=== PATIENT | female | born 1990 | race Caucasian/White ===

== ENCOUNTER → 2018-09-22 | Emergency (ER) | payer OTHER ==
[~2018-09-22] VITALS: Ht 160 cm; Wt 106.6 kg
[~2018-09-22] MED LIST: ACET500C5 PO; NITR-58 PO
[2018-09-22 15:13] VITALS: BP 151/99; PULSE 85; RESP 18; Ht 160 cm; Wt 106.6 kg
--- NOTE | 2018-09-22 15:49 | ERD ---
ER Documentation Chief Complaint Chief Complaint left pelvic pain x 4 days, + 4 weeks and 5 days HPI 27-year-old female with no reported past medical history G1, P0 currently 4 weeks 5 days who presents with complaint of pelvic pain. Having left- sided abdominal pelvic pain over the past 4 days. She otherwise denies vaginal bleeding, urinary symptoms such as burning itching or frequency, vaginal discharge, nausea, vomiting, diarrhea, fever, chills or any other concerning symptoms. ROS All systems reviewed and are negative except as per history of present illness. Medications Home Meds Active Scripts Acetaminophen* (Tylophen*) 500 Mg Capsule, 1 CAP PO Q6H PRN for PAIN AND OR ELEVATED TEMP, #20 CAP Prov:ALEJANDRO DELEON PA-C 09/22/18 Allergies Allergies: Coded Allergies: No Known Allergy (Unverified , 09/22/18) PMhx/Soc Medical and Surgical Hx: pt denies Medical Hx, pt denies Surgical Hx Hx Alcohol Use: No Hx Substance Use: No Hx Tobacco Use: No Smoking Status: Never smoker FmHx Family History: No diabetes, No coronary disease, No other Physical Exam Vitals Vital Signs Date Temp Pulse Resp B/P (MAP) Pulse Ox O2 O2 Flow FiO2 Time Delivery Rate 09/22/18 97.6 85 18 151/99 99 15:13 (116) Physical Exam I have reviewed the triage vital signs. Const: Well nourished, well developed, appears stated age Eyes: PERRL, no conjunctival injection HENT: NCAT, Neck supple without meningismus CV: RRR, Warm, well-perfused extremities RESP: CTAB, Unlabored respiratory effort GI: soft, tenderness to deep palpation of left lower quadrant, no rebound or guarding, non-distended, no masses MSK: No gross deformities appreciated Skin: Warm, dry. No rashes Neuro: grossly non focal Psych: Appropriate mood and affect. Result Diagram: 09/22/18 1606 Results 24 hrs Laboratory Tests Test 09/22/18 15:53 09/22/18 16:06 Urine Color STRAW Urine Clarity CLEAR Urine pH 6.0 Urine Specific [place] 1.001 Urine Ketones NEGATIVE mg/dL Urine Nitrite NEGATIVE mg/dL Urine Bilirubin NEGATIVE mg/dL Urine Urobilinogen NEGATIVE mg/dL Urine Leukocyte Esterase NEGATIVE Teresa/ul Urine Microscopic RBC 0 /HPF Urine Microscopic WBC 0 /HPF Urine Hemoglobin 1+ mg/dL Urine Glucose NEGATIVE mg/dL Urine Total Protein NEGATIVE mg/dl White Blood Count 9.3 10^3/ul Red Blood Count 4.95 10^6/ul Hemoglobin 14.4 g/dl Hematocrit 43.8 % Mean Corpuscular Volume 88.5 fl Mean Corpuscular Hemoglobin 29.1 pg Mean Corpuscular Hemoglobin Concent 32.9 g/dl Red Cell Distribution Width 12.7 % Platelet Count 225 10^3/UL Mean Platelet Volume 11.5 fl Immature Granulocytes % 0.200 % Neutrophils % 76.1 % Lymphocytes % 18.7 % Monocytes % 4.2 % Eosinophils % 0.3 % Basophils % 0.5 % Nucleated Red Blood Cells % 0.0 /100WBC Immature Granulocytes # 0.020 10^3/ul Neutrophils # 7.0 10^3/ul Lymphocytes # 1.7 10^3/ul Monocytes # 0.4 10^3/ul Eosinophils # 0.0 10^3/ul Basophils # 0.1 10^3/ul Nucleated Red Blood Cells # 0.0 10^3/ul Beta HCG, Quantitative 205.6 mIU/ml Procedures/MDM 27 yo woman at 4 weeks gestational age by LMP/ultrasound presenting with abdominal pain. Considered ectopic , spectrum of miscarriage/ (threatened, inevitable, incomplete, complete, septic) as well as causes of female-specific abdominal pain unrelated to (e.g., pelvic inflammatory disease with or without tubo-ovarian abscess, [id number], etc.). Also considered causes of abdominal pain that are not gender-specific (e.g., appendicitis, volvulus, small bowel obstruction, mesenteric adenitis, acute cholecystitis/choledocholithiasis and other biliary pathology, etc.). Patient well-appearing with normal vital signs. Gave patient strict return precautions for worsening pain, vaginal bleeding, fever (temperature above 100.4F), lightheadedness/syncope or other concerns. For consideration of ectopic , the quantitative beta hCG was 200. Transvaginal/transabdominal ultrasound without acute finding, 4 weeks with no gestational sac seen. Patient will follow up in 48 hours with their refrigerating oiler. ED course: Ultrasound doubt acute finding UA unremarkable Labs unremarkable DISPOSITION PLAN: We discussed follow up with the patient's primary care doctor within 24 to 48 hours. Patient counseled regarding my diagnostic impression and care plan. Prior to discharge all questions answered. Pt agrees with treatment plan and understands strict return precautions. Precautionary instructions provided including instructions to return to the ER if not improving or for any worsening or changing symptoms or concerns. Disclaimer: Inadvertent spelling and grammatical errors are likely due to EHR/dictation software use and do not reflect on the overall quality of patient care. Also, please note that the electronic time recorded on this note does not necessarily reflect the actual time of the patient encounter. Departure Diagnosis: Primary Impression: Pelvic pain complicating Condition: Stable ALEJANDRO DELEON PA-C Sep 22, 2018 15:49
== END | disposition home or self-care (01) ==
LOC: FTE 15:08
DX: O26.891 Other specified pregnancy related conditions, first trimester (principal); R10.2 Pelvic and perineal pain; Z3A.01 Less than 8 weeks gestation of pregnancy
CPT/HCPCS: 76801; 76817; 81001; 84702; 85025; 86900; 86901; 87086; Z7502

== ENCOUNTER 2018-09-27 12:29 | Emergency (ER) | payer OTHER ==
[~2018-09-27] VITALS: Ht 160 cm; Wt 106.7 kg
[~2018-09-27 12:29] MED LIST changes: +CEPH-443 PO
[2018-09-27 12:44] VITALS: BP 146/85; PULSE 77; RESP 20; Ht 160 cm; Wt 106.7 kg
--- NOTE | 2018-09-27 13:54 | ERD ---
ER Documentation Chief Complaint Chief Complaint LUQ abd pain x 1 wk; 6 wks preg; denies n/v/diarrhea HPI Patient is a 27 years old G1, P0 female currently 5 weeks gestation presenting to the clinic for persistent left lower quadrant pain without fever, chills, night sweats, dizziness, nausea, emesis, vaginal discharge, dysuria frequency. Patient was seen and evaluated on the in the ED that showed normal CBC, CMP, urinalysis. Ultrasound revealed no sonographic evidence of intrauterine or ectopic gestation is seen at this time. Beta-hCG of 205.6. Patient was advised to follow-up with her SURGERY ASSISTANT for further evaluation. Patient urine culture showed mixed gram-positive organism (20-30K). Patient denies being contacted by ED for urine culture result. ROS All systems reviewed and are negative except as per history of present illness. Medications Home Meds Active Scripts Acetaminophen* (Tylophen*) 500 Mg Capsule, 1 CAP PO Q6H PRN for PAIN AND OR ELEVATED TEMP, #20 CAP Prov:ALEJANDRO DELEON PA-C 09/22/18 Allergies Allergies: Coded Allergies: No Known Allergy (Unverified , 09/22/18) PMhx/Soc Hx Alcohol Use: No Hx Substance Use: No Hx Tobacco Use: No Physical Exam Vitals Vital Signs Date Temp Pulse Resp B/P (MAP) Pulse Ox O2 O2 Flow FiO2 Time Delivery Rate 09/27/18 99.6 77 20 146/85 98 12:44 (105) Physical Exam Const: No acute distress Head: Atraumatic Resp: Clear to auscultation bilaterally Cardio: Regular rate and rhythm, no murmurs Abd: Soft, Left sided abdominal tenderness, non distended. Normal bowel sounds Skin: No petechiae or rashes Back: No midline or flank tenderness. Negative CVAT. Psych: Normal Mood and Affect Procedures/MDM Patient seen and evaluated for persistent left lower quadrant pain. Patient's urine culture reveals UTI which is most likely the cause of her symptoms. Patient's vitals stable and does not require no further work-up. Patient will be discharged with Macrobid. Patient was advised to follow-up with her SURGERY ASSISTANT on Saturday. Patient stable and ready for discharge. Departure Diagnosis: Primary Impression: UTI (urinary tract infection) Urinary tract infection type: site unspecified Hematuria presence: without hematuria Qualified Codes: N39.0 - Urinary tract infection, site not specified Condition: Stable Patient Instructions: Understanding Urinary Tract Infections (UTIs) Referrals: [facility] Additional Instructions: Patient advised to return to the ED immediately for new or worsening symptoms. Patient advised to follow up with primary care provider in the next 24-48 hours. Patient verbalized understanding and agrees with treatment plan and course of action. If patient has no primary care they may follow up with [facility] + [facility] [address] [place] [id number] or [facility] [address] [place] [address] or [facility] [address] [place] [address] AMARILIS CRISTINA PA-C Sep 27, 2018 13:54
== END 2018-09-27 14:12 | disposition home or self-care (01) ==
LOC: FTE 12:29
DX: O23.41 Unspecified infection of urinary tract in pregnancy, first trimester (principal); Z3A.01 Less than 8 weeks gestation of pregnancy
CPT/HCPCS: 99283

== ENCOUNTER 2018-10-07 13:52 | Emergency (ER) | payer OTHER ==
[~2018-10-07] VITALS: Ht 160 cm; Wt 107.0 kg
[2018-10-07 13:56] VITALS: BP 126/78; PULSE 75; RESP 18; Ht 160 cm; Wt 107.0 kg
--- NOTE | 2018-10-07 13:58 | EN ---
Date/Time of Note Date/Time of Note DATE: 10/07/18 TIME: 13:58 ER Progress Note MGD-71-ydjl-old female with vaginal spotting starting today. She is 6 weeks by dates. No apparent distress. ED 2 appropriate. BOONE HERNANDEZ MD Oct 07, 2018 13:58
--- NOTE | 2018-10-07 14:23 | ERD ---
ER Documentation Chief Complaint Chief Complaint vag bleed today, 6 weeks HPI This is a 27-year-old female who presents emergency room with complaint of light pink blood while wiping after urinating starting this morning. States 6 weeks . Patient also describing lower pelvic pain, +burning with urination, + nausea. Denies fevers, no back pain. No vaginal itching or unusual discharge. LMP: 08/24/18 OB: [place] ROS All systems reviewed and are negative except as per history of present illness. Medications Home Meds Active Scripts Cephalexin* (Keflex*) 500 Mg Capsule, 500 MG PO BID for 3 Days, #6 CAP Prov:FENG AHILE REIMBURSEMENT SPECIALIST 10/07/18 Nitrofurantoin Monohyd Macrocr* (Macrobid*) 100 Mg Capsr, 100 MG PO BID for 7 Days, #14 CAP Prov:AMARILIS CRISTINA PA-C 09/27/18 Acetaminophen* (Tylophen*) 500 Mg Capsule, 1 CAP PO Q6H PRN for PAIN AND OR ELEVATED TEMP, #20 CAP Prov:ALEJANDRO DELEON PA-C 09/22/18 Allergies Allergies: Coded Allergies: No Known Allergy (Unverified , 09/22/18) PMhx/Soc Medical and Surgical Hx: pt denies Medical Hx, pt denies Surgical Hx Hx Alcohol Use: No Hx Substance Use: No Hx Tobacco Use: No Smoking Status: Never smoker FmHx Family History: No diabetes, No coronary disease, No other Physical Exam Vitals Vital Signs Date Temp Pulse Resp B/P (MAP) Pulse Ox O2 O2 Flow FiO2 Time Delivery Rate 10/07/18 99.4 75 18 126/78 98 13:56 (94) Physical Exam Const: No acute distress Head: Atraumatic Eyes: Normal Conjunctiva ENT: Normal External Ears, Nose and Mouth. Neck: Full range of motion. No meningismus. Resp: Clear to auscultation bilaterally Cardio: Regular rate and rhythm, no murmurs Abd: Soft, +tenderness at lower pelvis, non distended. Normal bowel sounds Skin: No petechiae or rashes Back: No midline or flank tenderness, no CVT Ext: No cyanosis, or edema Neur: Awake and alert Psych: Normal Mood and Affect Result Diagram: 10/07/18 1435 Results 24 hrs Laboratory Tests Test 10/07/18 14:35 White Blood Count 7.8 10^3/ul Red Blood Count 4.39 10^6/ul Hemoglobin 13.0 g/dl Hematocrit 39.1 % Mean Corpuscular Volume 89.1 fl Mean Corpuscular Hemoglobin 29.6 pg Mean Corpuscular Hemoglobin Concent 33.2 g/dl Red Cell Distribution Width 12.6 % Platelet Count 198 10^3/UL Mean Platelet Volume 11.6 fl Immature Granulocytes % 0.400 % Neutrophils % 67.3 % Lymphocytes % 24.4 % Monocytes % 6.2 % Eosinophils % 1.2 % Basophils % 0.5 % Nucleated Red Blood Cells % 0.0 /100WBC Immature Granulocytes # 0.030 10^3/ul Neutrophils # 5.2 10^3/ul Lymphocytes # 1.9 10^3/ul Monocytes # 0.5 10^3/ul Eosinophils # 0.1 10^3/ul Basophils # 0.0 10^3/ul Nucleated Red Blood Cells # 0.0 10^3/ul Urine Color STRAW Urine Clarity CLEAR Urine pH 6.0 Urine Specific [place] 1.002 Urine Ketones NEGATIVE mg/dL Urine Nitrite NEGATIVE mg/dL Urine Bilirubin NEGATIVE mg/dL Urine Urobilinogen NEGATIVE mg/dL Urine Leukocyte Esterase NEGATIVE Teresa/ul Urine Microscopic RBC 10 /HPF Urine Microscopic WBC 1 /HPF Urine Squamous Epithelial Cells FEW /HPF Urine Bacteria FEW /HPF Urine Hemoglobin 2+ mg/dL Urine Glucose NEGATIVE mg/dL Urine Total Protein NEGATIVE mg/dl Beta HCG, Quantitative 69780.0 mIU/ml Procedures/MDM PROCEDURES/MDM DIAGNOSTIC IMAGING: Read by radiologist. OB US IMPRESSION: Single live intrauterine with an estimated gestational age of 6 weeks and 1 day, based on ultrasound measurements. ASUNCION based on ultrasound measurements is 06/01/19. HR 119 bpm Small simple cyst in the right ovary with a trace amount of free fluid in the right adnexa. LAB INTERPRETATION: No leukocytosis, no anemia beta hCG 22,000. +microscopic bacteria. Urine culture sent. Blood type is A positive MDM: Patient remained stable throughout the ER course. Patient presents with "pink on toilet paper" since this am. Differential includes early normal , ectopic , failed . She will discharged home with recommendations for 2-day recheck of hormones to further evaluate condition. She is to return sooner for fevers, hemorrhaging, new worsening symptoms. Current signs or symptoms do not suggest appendicitis, acute surgical abdomen, additional concerning signs or symptoms or conditions. The patient was stable with no new complaints during the ER course. Clinically, there is no current evidence to suggest meningitis, sepsis, acute abdomen, pneumonia, stroke, acute coronary syndrome, pulmonary embolism, aortic dissection or any other emergent condition appearing to require further evaluation or hospitalization. Patient counseled regarding my diagnostic impression and care plan. Prior to discharge all questions answered. Pt agrees with treatment plan and understands strict return precautions. Pt is instructed to follow up with primary care provider within 24-48 hours. Precautionary instructions provided including instructions to return to the ER if not improving or for any worsening or changing symptoms or concerns. Patient provied with labs and us results for follow-up. DISPOSITION and PLAN: RX: Keflex The patient has been discharge home to follow-up with community physician. Departure Diagnosis: Primary Impression: Vaginal bleeding in patient at less than 20 weeks gestation Condition: Stable FENG HAILE NP Oct 07, 2018 14:23
== END 2018-10-07 16:31 | disposition home or self-care (01) ==
LOC: FTE 13:52
DX: O20.9 Hemorrhage in early pregnancy, unspecified (principal); R10.2 Pelvic and perineal pain; Z3A.01 Less than 8 weeks gestation of pregnancy
CPT/HCPCS: 36415; 76801; 76817; 81001; 84702; 85025; 86900; 86901; 87086; Z7502